=== PATIENT | male | born 1980 | race African-American/Black ===

== ENCOUNTER 2021-02-23 09:00 | Inpatient (IN) ==
[2021-02-23] MEDS ORDERED: Propofol 10 mg/ml 100 ML BTL 100 ML IV ONE (09:09)
[2021-02-23] MEDS ORDERED: Etomidate 20 mg/10 ml 2 MG/ML 10 ml VIAL IV ONE (09:09)
[2021-02-23] MEDS ORDERED: Etomidate 40 mg/20 ml (2 MG/ML) 20 ml VIAL (40 mg) ONE ×2 (09:09→09:11)
[2021-02-23] MEDS ORDERED: Rocuronium 50 mg VIAL 10 mg/ml 5 ml VIAL (50 mg) IV ONE (09:09)
[2021-02-23] MEDS ORDERED: Propofol 10 mg/ml 100 ML BTL 100 ML ONE (09:09)
[2021-02-23] MEDS ORDERED: Rocuronium 50 mg VIAL 10 mg/ml 5 ml VIAL (50 mg) ONE ×2 (09:10→13:08)
[2021-02-23 09:25] LABS: Hematocrit 46 % (42-52); Hemoglobin 15.3 g/dL (14.0-18.0); Mean Corpuscular HGB Conc 33 g/dL (31-36); Mean Corpuscular Hemoglobin 30 pg (27-31); Mean Corpuscular Volume 89 fL (80-94); Mean Platelet Volume 7.9 fL (7.4-10.4); Platelet Count 314 10^3/uL (150-450); Red Blood Count 5.19 10^6 /uL (4.18-5.48); Red Cell Distribution Width 14 % (10-15); White Blood Count 25.1 10^3/uL (3.5-10.8)
[2021-02-23 09:39] LABS: PO2 Arterial 111 mmHg (80-100)
[2021-02-23 09:41] LABS: ALT 110 U/L (7-52); AST 145 U/L (13-39); Albumin 4.4 g/dL (3.2-5.2); Albumin/Globulin Ratio 1.5 (1-3); Alkaline Phosphatase 90 U/L (35-149); Blood Urea Nitrogen 28 mg/dL (6-24); CO2 Carbon Dioxide 21 mmol/L (22-32); Calcium 8.7 mg/dL (8.6-10.3); Chloride 103 mmol/L (101-111); EGFR African American 31.8 (>60); EGFR Non-African American 26.3 (>60); Glucose 170 mg/dL (70-100); Sodium 137 mmol/L (135-145); Total Protein 7.4 g/dL (6.4-8.9)
[2021-02-23 09:43] LABS: PCO2 Arterial 84 mmHg (35-45)
[2021-02-23 09:44] LABS: Anion Gap 13 mmol/L (2-11); Potassium 5.1 mmol/L (3.5-5.0)
[2021-02-23] MEDS ORDERED: Cefepime 1 GM in Dextrose 1 GM/50 ML BAG IV ONE (10:01)
[2021-02-23 10:12] LABS: ABS Basophils 0.1 10^3/ul (0-0.2); ABS Lymphocytes 1.7 10^3/ul (1.0-4.8); ABS Monocytes 0.7 10^3/ul (0-0.8); ABS Neutrophils 22.6 10^3/ul (1.5-7.7); Eosinophil % 0.2 %; Lymphocyte % 6.6 %
[2021-02-23] MEDS ORDERED: NS 0.9% 1000 ml BAG 1,000 ML IV ONE ×2 (10:12→10:21)
[2021-02-23 10:30] LABS: Acetaminophen < 15 mcg/mL; Alcohol, S < 10 mg/dL (<10); Salicylate < 2.50 mg/dL (<30)
[2021-02-23 11:15] LABS: Urine Benzodiazepine Screen None Detected (None Detect); Urine Cannabinoids Screen Presumptive Positive (None Detect); Urine Opiates Screen None Detected (None Detect)
[2021-02-23] MEDS ORDERED: Dextrose 50% Syringe 50 ml 25 GM/50 ML SYRINGE IV PUSH ONE ×2 (11:41→15:21)
[2021-02-23] MEDS ORDERED: Sodium Bicarbonate 8.4% SYR 50 ml SYRINGE IV ONE ×2 (11:41→15:23)
[2021-02-23] MEDS ORDERED: cefTRIAXone 1 gm/50 mL NS BAG 1 GM/50 ML BAG IVPB SCH (12:00)
[2021-02-23 12:14] LABS: PO2 Arterial 264 mmHg (80-100)
[2021-02-23 12:17] LABS: PCO2 Arterial 73 mmHg (35-45)
[2021-02-23 12:26] LABS: Creatine Kinase 723 U/L (10-223); Magnesium 2.4 mg/dL (1.9-2.7); Phosphorus 10.9 mg/dL (2.5-5.0)
[2021-02-23 12:33] LABS: INR 1.1 (0.82-1.09)
[2021-02-23] MEDS ORDERED: Dextrose 50% Syringe 50 ml 25 GM/50 ML SYRINGE ONE ×2 (12:51→15:22)
[2021-02-23] MEDS: Chlorhexidine MOUTHWASH 0.12% 15 ML UDC TOPICAL SCH ×4 (12:59→23:29)
[2021-02-23] MEDS ORDERED: fentaNYL 100 mcg/2 ml 50 MCG/ML VIAL ONE ×2 (13:07→19:23)
[2021-02-23] MEDS: NORMOSOL-R pH 7.4 1000 mL BAG 1,000 ML IV SCH ×2 (13:15→16:34)
[2021-02-23] MEDS: Propofol 10 mg/ml 100 ML BTL 100 ML IV SCH ×3 (13:24→23:00)
[2021-02-23] MEDS ORDERED: NORMOSOL-R pH 7.4 1000 mL BAG 1,000 ML IV SCH (14:00)
[2021-02-23] MEDS ORDERED: Norepinephrine 16MCG/ML IVPRE 4,000 MCG/250 ML BAG IV ONE (14:29)
[2021-02-23] MEDS: Azithromycin 500 mg/250 ml NS 500 MG/250 ML BAG IVPB SCH (14:37)
[2021-02-23] MEDS: Norepinephrine 16MCG/ML IVPRE 4,000 MCG/250 ML BAG IV SCH (15:00)
[2021-02-23 15:10] LABS: Blood Urea Nitrogen 30 mg/dL (6-24); CO2 Carbon Dioxide 24 mmol/L (22-32); Calcium 7.4 mg/dL (8.6-10.3); Chloride 106 mmol/L (101-111); EGFR African American 36.6 (>60); EGFR Non-African American 30.3 (>60); Glucose 135 mg/dL (70-100); Magnesium 1.9 mg/dL (1.9-2.7); Phosphorus 4.4 mg/dL (2.5-5.0); Sodium 134 mmol/L (135-145)
[2021-02-23 15:17] LABS: Anion Gap 4 mmol/L (2-11); Potassium 6.5 mmol/L (3.5-5.0)
[2021-02-23 15:18] LABS: Troponin I 0.08 ng/mL (<0.03)
[2021-02-23] MEDS ORDERED: SODIUM ZIRCONIUM CYCLOSILICATE 10 GM PACKET PO ONE (15:23)
[2021-02-23 16:01] LABS: PCO2 Arterial 55 mmHg (35-45); PO2 Arterial 89 mmHg (80-100)
[2021-02-23 16:52] LABS: Urine Appearance Cloudy; Urine Bilirubin Negative (Negative); Urine Blood 1+ (Negative); Urine Color Yellow; Urine Glucose Negative (Negative); Urine Ketones Negative (Negative); Urine Nitrite Negative (Negative); Urine Protein Negative (Negative); Urine Specific Gravity 1.009 (1.002-1.030); Urine Urobilinogen Negative (Negative)
[2021-02-23 16:55] LABS: Urine Bacteria 1+ (Absent); Urine Red Blood Cell Absent (Absent); Urine White Blood Cell Trace(0-5/hpf) (Absent)
[2021-02-23 18:15] LABS: Calcium 7.6 mg/dL (8.6-10.3); EGFR African American 42.8 (>60); EGFR Non-African American 35.4 (>60); Potassium 4.7 mmol/L (3.5-5.0)
[2021-02-23] MEDS ORDERED: Lorazepam PYXIS KEY PRN (18:18)
[2021-02-23 18:37] LABS: PCO2 Arterial 43 mmHg (35-45); PO2 Arterial 78 mmHg (80-100)
[2021-02-23] MEDS ORDERED: fentaNYL 100 mcg/2 ml 50 MCG/ML VIAL IV SLOW PU PRN (19:40)
[2021-02-23] MEDS ORDERED: fentaNYL 100 mcg/2 ml 50 MCG/ML VIAL IV SLOW PU ONE (20:11)
[2021-02-23 20:56] LABS: Troponin I 0.12 ng/mL (<0.03)
[2021-02-23 21:06] LABS: PCO2 Arterial 33 mmHg (35-45); PO2 Arterial 78 mmHg (80-100)
[2021-02-24 00:03] LABS: Troponin I 0.12 ng/mL (<0.03)
[2021-02-24] MEDS: Propofol 10 mg/ml 100 ML BTL 100 ML IV SCH ×6 (02:10→22:26)
[2021-02-24 02:53] LABS: Troponin I 0.12 ng/mL (<0.03)
[2021-02-24 03:06] LABS: PCO2 Arterial 39 mmHg (35-45); PO2 Arterial 77 mmHg (80-100)
[2021-02-24] MEDS: Norepinephrine 16MCG/ML IVPRE 4,000 MCG/250 ML BAG IV SCH (03:16)
[2021-02-24] MEDS: Chlorhexidine MOUTHWASH 0.12% 15 ML UDC TOPICAL SCH ×5 (04:21→20:53)
[2021-02-24] MEDS ORDERED: Dextrose 50% Syringe 50 ml 25 GM/50 ML SYRINGE IV PUSH PRN (06:15)
[2021-02-24 08:47] LABS: INR 1.12 (0.82-1.09)
[2021-02-24 09:06] LABS: ALT 179 U/L (7-52); AST 183 U/L (13-39); Albumin 3.5 g/dL (3.2-5.2); Albumin/Globulin Ratio 1.3 (1-3); Alkaline Phosphatase 59 U/L (35-149); Anion Gap 9 mmol/L (2-11); Blood Urea Nitrogen 17 mg/dL (6-24); CO2 Carbon Dioxide 28 mmol/L (22-32); Calcium 8.1 mg/dL (8.6-10.3); Chloride 105 mmol/L (101-111); EGFR African American 58.3 (>60); EGFR Non-African American 48.2 (>60); Globulin 2.6 g/dL (2-4); Glucose 119 mg/dL (70-100); Phosphorus 2.5 mg/dL (2.5-5.0); Sodium 142 mmol/L (135-145); Total Protein 6.1 g/dL (6.4-8.9)
[2021-02-24] MEDS: LORazepam 2 mg VIAL 1 ml IV PUSH PRN (09:21)
[2021-02-24] MEDS ORDERED: Pantoprazole VIAL 40 MG VIAL IV SCH (10:00)
[2021-02-24] MEDS: Famotidine IV 10 MG/ML 2 ml VIAL (20 mg) IV SLOW PU SCH (10:18)
[2021-02-24] MEDS: Heparin 5000 UNITS/ML 1 mL VIAL SUBCUT SCH ×3 (10:19→20:53)
[2021-02-24 12:07] LABS: Hematocrit 38 % (42-52); Hemoglobin 12.6 g/dL (14.0-18.0); Mean Corpuscular HGB Conc 34 g/dL (31-36); Mean Corpuscular Hemoglobin 29 pg (27-31); Mean Corpuscular Volume 86 fL (80-94); Mean Platelet Volume 8.1 fL (7.4-10.4); Platelet Count 183 10^3/uL (150-450); Red Blood Count 4.36 10^6 /uL (4.18-5.48); Red Cell Distribution Width 14 % (10-15); White Blood Count 11.8 10^3/uL (3.5-10.8)
[2021-02-24] MEDS: Azithromycin 500 mg/250 ml NS 500 MG/250 ML BAG IVPB SCH (12:41)
[2021-02-24] MEDS: NORMOSOL-R pH 7.4 1000 mL BAG 1,000 ML IV SCH (12:47)
[2021-02-24] MEDS: cefTRIAXone 2 GM ADDV.VIAL 2 GM in NS 0.9% 100 ml BAG 100 ML IV SCH (15:18)
[2021-02-24] MEDS: D5LR 1000 ml BAG 1,000 ML IV SCH ×2 (16:32→22:52)
[2021-02-25] MEDS: Chlorhexidine MOUTHWASH 0.12% 15 ML UDC TOPICAL SCH ×6 (00:01→20:43)
[2021-02-25] MEDS: fentaNYL 100 mcg/2 ml 50 MCG/ML VIAL IV SLOW PU PRN ×2 (02:06→13:01)
[2021-02-25] MEDS: Propofol 10 mg/ml 100 ML BTL 100 ML IV SCH ×4 (03:25→19:27)
[2021-02-25] MEDS: LORazepam 2 mg VIAL 1 ml IV PUSH PRN ×2 (05:03→11:36)
[2021-02-25] MEDS: Heparin 5000 UNITS/ML 1 mL VIAL SUBCUT SCH ×3 (05:05→20:43)
[2021-02-25 05:47] LABS: Hematocrit 39 % (42-52); Hemoglobin 13.2 g/dL (14.0-18.0); Mean Corpuscular HGB Conc 34 g/dL (31-36); Mean Corpuscular Hemoglobin 29 pg (27-31); Mean Corpuscular Volume 87 fL (80-94); Mean Platelet Volume 8.9 fL (7.4-10.4); Platelet Count 188 10^3/uL (150-450); Red Blood Count 4.49 10^6 /uL (4.18-5.48); Red Cell Distribution Width 14 % (10-15); White Blood Count 12.7 10^3/uL (3.5-10.8)
[2021-02-25 05:57] LABS: Albumin 3.4 g/dL (3.2-5.2); Albumin/Globulin Ratio 1.2 (1-3); Calcium 8.8 mg/dL (8.6-10.3); EGFR African American 69.9 (>60); EGFR Non-African American 57.7 (>60); Globulin 2.9 g/dL (2-4); Magnesium 1.8 mg/dL (1.9-2.7); Phosphorus 2.1 mg/dL (2.5-5.0); Potassium 3.8 mmol/L (3.5-5.0); Total Bilirubin 0.5 mg/dL (0.2-1.0); Total Protein 6.3 g/dL (6.4-8.9)
[2021-02-25] MEDS ORDERED: Multivitamins ADULT w/MIN LIQ 15 ML UDC PO SCH (09:00)
[2021-02-25] MEDS: Famotidine IV 10 MG/ML 2 ml VIAL (20 mg) IV SLOW PU SCH (09:27)
[2021-02-25] MEDS ORDERED: Magnesium Sulfate 2 gm BAG 2 GM/50 ML BAG IVPB ONE (09:43)
[2021-02-25] MEDS ORDERED: Potassium Phosphate IV 15 MMOLE in NS 0.9% 250 ml 250 ML IVPB ONE (09:44)
[2021-02-25] MEDS: Dextran 70/Hypromellose Tears Eye Drops 15 ml BTL (for Artificials Tears) BOTH EYES SCH ×7 (11:09→20:44)
[2021-02-25] MEDS: Azithromycin 500 mg/250 ml NS 500 MG/250 ML BAG IVPB SCH (12:28)
[2021-02-25] MEDS: Dexmedetomidine 1,000 MCG in NS 0.9% 250 ml 240 ML IV SCH (14:16)
[2021-02-25] MEDS: cefTRIAXone 2 GM ADDV.VIAL 2 GM in NS 0.9% 100 ml BAG 100 ML IV SCH (15:45)
[2021-02-26] MEDS: Chlorhexidine MOUTHWASH 0.12% 15 ML UDC TOPICAL SCH ×3 (00:09→08:40)
[2021-02-26] MEDS: Dextran 70/Hypromellose Tears Eye Drops 15 ml BTL (for Artificials Tears) BOTH EYES SCH ×6 (00:09→08:41)
[2021-02-26] MEDS: LORazepam 2 mg VIAL 1 ml IV PUSH PRN ×3 (05:07→21:41)
[2021-02-26 05:19] LABS: Hematocrit 40 % (42-52); Hemoglobin 13.7 g/dL (14.0-18.0); Mean Corpuscular HGB Conc 34 g/dL (31-36); Mean Corpuscular Hemoglobin 29 pg (27-31); Mean Corpuscular Volume 86 fL (80-94); Mean Platelet Volume 8.3 fL (7.4-10.4); Platelet Count 188 10^3/uL (150-450); Red Blood Count 4.68 10^6 /uL (4.18-5.48); Red Cell Distribution Width 14 % (10-15); White Blood Count 11.9 10^3/uL (3.5-10.8)
[2021-02-26] MEDS: Heparin 5000 UNITS/ML 1 mL VIAL SUBCUT SCH ×3 (05:40→23:36)
[2021-02-26 06:32] LABS: Albumin 3.6 g/dL (3.2-5.2); Potassium 4.1 mmol/L (3.5-5.0); Total Bilirubin 0.5 mg/dL (0.2-1.0)
[2021-02-26 06:38] LABS: Albumin/Globulin Ratio 1.1 (1-3); EGFR African American 71.1 (>60); EGFR Non-African American 58.7 (>60); Globulin 3.2 g/dL (2-4); Phosphorus 3.4 mg/dL (2.5-5.0); Total Protein 6.8 g/dL (6.4-8.9)
[2021-02-26] MEDS: Dexmedetomidine 1,000 MCG in NS 0.9% 250 ml 240 ML IV SCH ×2 (07:59→15:17)
[2021-02-26] MEDS: Famotidine IV 10 MG/ML 2 ml VIAL (20 mg) IV SLOW PU SCH (08:40)
[2021-02-26] MEDS: Multivitamins/Minerals TAB PO SCH (08:40)
[2021-02-26] MEDS ORDERED: Propofol 10 mg/ml 100 ML BTL 100 ML IV SCH (10:00)
[2021-02-26] MEDS ORDERED: hydrALAZINE 20 mg/ml 1 ML Vial IV IV SLOW PU PRN ×2 (10:47→17:19)
[2021-02-26] MEDS ORDERED: Lorazepam PYXIS KEY ONE (11:52)
[2021-02-26] MEDS ORDERED: LORazepam 2 mg VIAL 1 ml ONE (11:52)
[2021-02-26] MEDS ORDERED: Haloperidol 5 mg/ml SDV IV/IM 5 MG/ML AMP ONE (11:59)
[2021-02-26] MEDS ORDERED: fentaNYL 100 mcg/2 ml 50 MCG/ML VIAL IV SLOW PU PRN (12:01)
[2021-02-26] MEDS: Haloperidol 5 mg/ml SDV IV/IM 5 MG/ML AMP IV SLOW PU PRN ×2 (12:20→21:44)
[2021-02-26] MEDS: Azithromycin 500 mg/250 ml NS 500 MG/250 ML BAG IVPB SCH (12:43)
[2021-02-26] MEDS: cefTRIAXone 2 GM ADDV.VIAL 2 GM in NS 0.9% 100 ml BAG 100 ML IV SCH (14:22)
[2021-02-26] MEDS ORDERED: Ziprasidone IM 20 mg VIAL 1 ml VIAL ONE (21:40)
[2021-02-26] MEDS ORDERED: Haloperidol 5 mg/ml SDV IV/IM 5 MG/ML AMP IV SLOW PU PRN (22:13)
[2021-02-27] MEDS: Dexmedetomidine 1,000 MCG in NS 0.9% 250 ml 240 ML IV SCH (02:02)
[2021-02-27 05:52] LABS: Hematocrit 38 % (42-52); Hemoglobin 12.7 g/dL (14.0-18.0); Mean Corpuscular HGB Conc 33 g/dL (31-36); Mean Corpuscular Hemoglobin 29 pg (27-31); Mean Corpuscular Volume 87 fL (80-94); Platelet Count 218 10^3/uL (150-450); Red Blood Count 4.39 10^6 /uL (4.18-5.48); Red Cell Distribution Width 13 % (10-15)
[2021-02-27 06:06] LABS: Albumin 3.1 g/dL (3.2-5.2); Albumin/Globulin Ratio 1.1 (1-3); Calcium 8.2 mg/dL (8.6-10.3); EGFR African American 89.3 (>60); EGFR Non-African American 73.8 (>60); Globulin 2.8 g/dL (2-4); Magnesium 1.7 mg/dL (1.9-2.7); Phosphorus 3.2 mg/dL (2.5-5.0); Potassium 3.3 mmol/L (3.5-5.0); Total Bilirubin 0.5 mg/dL (0.2-1.0); Total Protein 5.9 g/dL (6.4-8.9)
[2021-02-27] MEDS ORDERED: Magnesium Sulfate 2 gm BAG 2 GM/50 ML BAG IVPB ONE (06:13)
[2021-02-27] MEDS: Heparin 5000 UNITS/ML 1 mL VIAL SUBCUT SCH ×3 (06:37→13:50)
[2021-02-27] MEDS: KCL 10 MEQ/50 ML IVPREMIX 10 MEQ/50 ML BAG IV SCH ×4 (06:38→13:49)
[2021-02-27] MEDS ORDERED: Saline FLUSH-CENTRAL 10 ML SYRINGE CENT\\PICC SCH (08:00)
[2021-02-27] MEDS: Multivitamins/Minerals TAB PO SCH (09:16)
[2021-02-27] MEDS: Azithromycin 500 mg/250 ml NS 500 MG/250 ML BAG IVPB SCH (12:15)
[2021-02-27] MEDS ORDERED: KCL 10 MEQ/50 ML IVPREMIX 10 MEQ/50 ML BAG ONE (13:46)
[2021-02-27 15:10] LABS: Calcium 7.2 mg/dL (8.6-10.3); EGFR African American 99.6 (>60); EGFR Non-African American 82.3 (>60); Magnesium 1.6 mg/dL (1.9-2.7); Phosphorus 2.2 mg/dL (2.5-5.0); Potassium 4.4 mmol/L (3.5-5.0)
[2021-02-27] MEDS ORDERED: Sodium Phosphate IV 15 MMOLE in NS 0.9% 250 ml 250 ML IVPB ONE (15:25)
[2021-02-27] MEDS ORDERED: Magnesium Sulf 4 GM/100 ML IV 4,000 MG/100 ML BAG IVPB ONE (15:25)
[2021-02-27 16:05] LABS: Troponin I 0.01 ng/mL (<0.03)
[2021-02-27] MEDS: cefTRIAXone 2 GM ADDV.VIAL 2 GM in NS 0.9% 100 ml BAG 100 ML IV SCH (17:12)
[2021-02-27 17:16] VITALS: BP 131/79
== END 2021-02-27 18:00 | disposition left against medical advice (07) | DRG 871 ==
LOC: ED 09:00 → ICU 12:46
PROVIDERS: ADMIT Internal Medicine; ATTEND Surgery Surgical Critical Care